=== PATIENT | female | born 1955 | race Caucasian/White ===

== ENCOUNTER 2022-06-08 06:19 | Day surgery (SDC) | payer OTHER ==
[2022-06-02 11:11] VITALS: BMI 23.3
[2022-06-08] MEDS ORDERED: TROPICAMIDE 1% OPHTH SOLN 15 ML BOTTLE ONE (06:35)
[2022-06-08] MEDS: KETOROLAC TROMETHAMINE 0.5% EYE DROP 1 DROP DROPS OD SCH ×3 (07:20→07:30)
[2022-06-08] MEDS: TROPICAMIDE 1% OPHTH SOLN 15 ML BOTTLE OD SCH ×3 (07:20→07:30)
[2022-06-08] MEDS: OFLOXACIN 0.3% OPHTHALMIC SOLUTION 5 ML BOTTLE OD SCH ×3 (07:20→07:30)
[2022-06-08] MEDS: PHENYLEPHRINE 2.5% OPHTH SOLN 15 ML BOTTLE OD SCH ×3 (07:20→07:30)
[2022-06-08] MEDS: CYCLOPENTOLATE HCL 1% OPHTH SOLN 2 ML BOTTLE OD SCH ×3 (07:20→07:30)
[2022-06-08] MEDS ORDERED: EPINEPHrine/PF 1 MG/1 ML (1:1,000) AMPULE ONE (07:23)
[2022-06-08] MEDS ORDERED: TRYPAN BLUE 0.5 ML DISP.SYRIN ONE (07:23)
[2022-06-08] MEDS ORDERED: BETAXOLOL HCL 0.25% OPHTHALMIC 10 ML DROPSBTL ONE ×2 (07:23→07:36)
[2022-06-08] MEDS ORDERED: EPI-SHUGARCAINE (EPINEPHRINE 0.025% & LIDOCAINE-PF 0.75%) 4ML ONE (07:23)
[2022-06-08] MEDS ORDERED: BACITRACIN/POLYMYXIN OPH OINT 3.5 GM TUBE ONE (07:23)
[2022-06-08] MEDS ORDERED: PHENYLEPHRINE/KETOROLAC 4 ML VIAL IO ONE (07:23)
[2022-06-08] MEDS ORDERED: POVIDONE-IODINE 5% OPHTHALMIC PREP 30 ML SOLUTION ONE (07:24)
[2022-06-08] MEDS ORDERED: ACETYLCHOLINE 1:100 INTRA-OCUL 20 MG/2 ML KIT ONE (07:24)
[2022-06-08] MEDS ORDERED: NEO/POLYMYX B SULF/DEXAMETH OPHTHALMIC 5ML BOTTLE ONE (07:24)
[2022-06-08] MEDS ORDERED: TETRACAINE 0.5% OPHTH SOLN 2 ML BOTTLE ONE (07:24)
[2022-06-08] MEDS ORDERED: MIDAZOLAM HCL 2 MG/2 ML SINGLE DOSE VIAL ONE (07:53)
[2022-06-08] MEDS ORDERED: ACETAMINOPHEN 325 MG TABLET (FP) PO PRN (08:24)
[2022-06-08 09:05] VITALS: RESP 18
[2022-06-08 11:01] VITALS: BP 122/63; PULSE 80; TEMP 97.4
== END 2022-06-08 10:15 | disposition home or self-care (01) ==
LOC: FASU 06:19
PROVIDERS: ATTEND Ophthalmology
PROC: 08RJ3JZ Replacement of Right Lens with Synthetic Substitute, Percutaneous Approach (ICD-10-PCS; principal; 2022-06-08 08:04)
DX: H25.11 Age-related nuclear cataract, right eye (principal)
CPT/HCPCS: 66984; V2632; 82962; J1097

== ENCOUNTER 2022-08-24 09:12 | Day surgery (SDC) | payer OTHER ==
[2022-08-17 16:20] VITALS: BMI 23.3
[2022-08-24] MEDS: TROPICAMIDE 1% OPHTH SOLN 15 ML BOTTLE OS SCH ×3 (09:40→09:50)
[2022-08-24] MEDS: OFLOXACIN 0.3% OPHTHALMIC SOLUTION 5 ML BOTTLE OS SCH ×3 (09:40→09:50)
[2022-08-24] MEDS: CYCLOPENTOLATE HCL 1% OPHTH SOLN 2 ML BOTTLE OS SCH ×3 (09:40→09:50)
[2022-08-24] MEDS: KETOROLAC TROMETHAMINE 0.5% EYE DROP 1 DROP DROPS OS SCH ×3 (09:40→09:50)
[2022-08-24] MEDS: PHENYLEPHRINE 2.5% OPHTH SOLN 15 ML BOTTLE OS SCH ×3 (09:40→09:50)
[2022-08-24] MEDS ORDERED: OFLOXACIN 0.3% OPHTHALMIC SOLUTION 5 ML BOTTLE ONE (09:47)
[2022-08-24] MEDS ORDERED: CYCLOPENTOLATE HCL 1% OPHTH SOLN 2 ML BOTTLE ONE (09:48)
[2022-08-24] MEDS ORDERED: PHENYLEPHRINE 2.5% OPTHALMIC DROP 2ML BOTTLE ONE (09:48)
[2022-08-24] MEDS ORDERED: KETOROLAC TROMETHAMINE 0.5% EYE DROP 1 DROP DROPS ONE (09:48)
[2022-08-24] MEDS ORDERED: TROPICAMIDE 1% OPHTH SOLN 15 ML BOTTLE ONE (09:48)
[2022-08-24] MEDS ORDERED: BACITRACIN/POLYMYXIN OPH OINT 3.5 GM TUBE ONE (11:03)
[2022-08-24] MEDS ORDERED: BETAXOLOL HCL 0.25% OPHTHALMIC 10 ML DROPSBTL ONE (11:03)
[2022-08-24] MEDS ORDERED: TETRACAINE 0.5% OPHTH SOLN 2 ML BOTTLE ONE (11:03)
[2022-08-24] MEDS ORDERED: EPINEPHrine/PF 1 MG/1 ML (1:1,000) AMPULE ONE (11:03)
[2022-08-24] MEDS ORDERED: PHENYLEPHRINE/KETOROLAC 4 ML VIAL IO ONE (11:03)
[2022-08-24] MEDS ORDERED: BSS (NA/CA/MG/K) BALANCED SALT SOLUTION OPHTH SOLN 15 ML BOTTLE ONE (11:04)
[2022-08-24] MEDS ORDERED: POVIDONE-IODINE 5% OPHTHALMIC PREP 30 ML SOLUTION ONE (11:04)
[2022-08-24] MEDS ORDERED: NEO/POLYMYX B SULF/DEXAMETH OPHTHALMIC 5ML BOTTLE ONE (11:04)
[2022-08-24] MEDS ORDERED: MIDAZOLAM HCL 2 MG/2 ML SINGLE DOSE VIAL ONE (11:11)
[2022-08-24] MEDS ORDERED: KETOROLAC TROMETHAMINE 30 MG/1 ML VIAL ONE (11:24)
[2022-08-24] MEDS ORDERED: ACETAMINOPHEN 325 MG TABLET (FP) PO PRN (11:57)
[2022-08-24 12:06] VITALS: RESP 18; TEMP 97.4
[2022-08-24 13:57] VITALS: BP 122/62; PULSE 72
== END 2022-08-24 12:33 | disposition home or self-care (01) ==
LOC: FASU 09:12
PROVIDERS: ATTEND Ophthalmology
PROC: 08RK3JZ Replacement of Left Lens with Synthetic Substitute, Percutaneous Approach (ICD-10-PCS; principal; 2022-08-24 11:30)
DX: H25.12 Age-related nuclear cataract, left eye (principal)
CPT/HCPCS: 66984; V2632; 82962; J1097